=== PATIENT | female | born 1955 | race Caucasian/White ===

== ENCOUNTER 2020-01-01 15:57 | Day surgery (SDC) | payer MEDICARE ==
[~2020-01-01] VITALS: Ht 160 cm; Wt 66.2 kg
[2020-01-01 16:34] VITALS: BP 135/64; PULSE 89; TEMP 97.1
[2020-01-01] MEDS ORDERED: PRINIVIL10 MG PO (16:46)
[2020-01-01] MEDS ORDERED: SYNTHROID0.088 MG/T PO (16:47)
[2020-01-01] MEDS ORDERED: PERCOCET 325 MG1 TA2 PO (16:47)
[2020-01-01] MEDS ORDERED: CLARITIN 1010 MG/TAB PO (16:48)
[2020-01-01] MEDS ORDERED: cholecalciferol (vit (16:48)
[2020-01-01] MEDS ORDERED: TOPAMAX50 MG PO (16:49)
[2020-01-01] MEDS ORDERED: LIPITOR 40MG TA40 MG PO (16:50)
--- NOTE | 2020-01-01 16:50 | NUR ---
RECEIVED VERBAL ORDER TO CHANGE CONSENT TO CYSTOSCOY WITH BILATERAL RPG, BILATERAL URETEROSCOPY WITH STONE EXTRACTION, POSSIBLE CYSTOSCOPY WITH BILATERAL STENT PLACEMENTS
[2020-01-01] MEDS ORDERED: NORPRAMIN 25MG25 MG PO (16:51)
--- NOTE | 2020-01-01 16:51 | NUR ---
BROTHER HUNG LEFT AND WILL NEED TO BE CALLED FOR RIDE HOME.
[2020-01-01] MEDS ORDERED: LEVEMIR SQ (16:52)
[2020-01-01] MEDS ORDERED: JANUMET 1000 MG1 TA1 PO (16:54)
[2020-01-01] MEDS ORDERED: OMEGA-3 FISH1000 MG PO (16:55)
--- NOTE | 2020-01-01 17:04 | NUR ---
TAKEN TO OR
[2020-01-01 19:30] VITALS: BP 106/79; PULSE 86; TEMP 98
[2020-01-01 19:45] VITALS: BP 114/66; PULSE 86
[2020-01-01 20:00] VITALS: BP 90/63; PULSE 88
[2020-01-01 20:15] VITALS: BP 99/63; PULSE 93; TEMP 98
--- NOTE | 2020-01-01 20:51 | NUR ---
Discharge criteria met. Discharge instructions given both verbal and handwritten. Discussed f/u appt/home meds/when to notify provider. Verbalizes understanding/denies questions/concerns. INT to left AC DCd-cath intact. Escorted off floor by staff via wheelchair in stable condition.
== END 2020-01-01 20:45 | disposition home or self-care (01) ==
LOC: SDCO 15:57 → SURG 18:30 → SDCO 20:45
DX: N20.1 Calculus of ureter (principal); E11.9 Type 2 diabetes mellitus without complications; I10 Essential (primary) hypertension; G43.909 Migraine, unspecified, not intractable, without status migrainosus; Z90.710 Acquired absence of both cervix and uterus; Z79.4 Long term (current) use of insulin; Z88.4 Allergy status to anesthetic agent; Z88.2 Allergy status to sulfonamides; Z87.891 Personal history of nicotine dependence; Z20.828 Contact with and (suspected) exposure to other viral communicable diseases
CPT/HCPCS: OP; C1769; C1894; C2617; J0690; J1100; J2405; J2704; J3010; J7120; Q9967